=== PATIENT | male | born 1950 | race Asian ===

== ENCOUNTER 2018-03-16 06:32 | Emergency (ER) | payer MEDICARE, OTHER ==
[~2018-03-16] VITALS: Ht 167.6 cm; Wt 77.0 kg
[2018-03-16] MEDS ORDERED: AMLO-511 PO (06:42)
[2018-03-16] MEDS ORDERED: PRAV20TA4 PO (06:42)
[2018-03-16] MEDS ORDERED: LOSA50TA25 PO (06:42)
[2018-03-16] MEDS ORDERED: GLIP5 PO (06:42)
[2018-03-16 06:44] LABS: GLUCOSE,POINT OF CARE 157 MG/DL (70-110)
[2018-03-16] MEDS ORDERED: PERTUSS(ACELL),DIPH,TET VAC/PF 0.5 ML VIAL IM ONE (07:00)
[2018-03-16] MEDS ORDERED: ACETAMINOPHEN 500 MG TABLET PO ONE (07:00)
[2018-03-16 08:30] VITALS: BP 153/72
== END 2018-03-16 09:24 | disposition home or self-care (01) ==
LOC: EMS 06:32
DX: S22.32XA Fracture of one rib, left side, initial encounter for closed fracture (principal); S50.812A Abrasion of left forearm, initial encounter; S80.211A Abrasion, right knee, initial encounter; E11.9 Type 2 diabetes mellitus without complications; E78.00 Pure hypercholesterolemia, unspecified; I10 Essential (primary) hypertension; Z79.84 Long term (current) use of oral hypoglycemic drugs; Z86.73 Personal history of transient ischemic attack (TIA), and cerebral infarction without residual deficits; Z79.899 Other long term (current) drug therapy; V09.9XXA Pedestrian injured in unspecified transport accident, initial encounter; Y93.89 Activity, other specified; Y92.410 Unspecified street and highway as the place of occurrence of the external cause; Y99.8 Other external cause status
CPT/HCPCS: 71250; 90471; 90715; 99284